=== PATIENT | male | born 1970 | race Caucasian/White ===

== ENCOUNTER 2024-09-12 06:43 | Outpatient (CLI) | payer BC, SELFPAY ==
--- NOTE | ~2024-09-12 | CT_ITS ---
CLINICAL INDICATION: Left lower quadrant pain with a family history of colon cancer. COMPARISON: None. TECHNIQUE: Multiple contiguous axial images of the abdomen and pelvis were performed following the ad ministration of with 100 mL Omnipaque-350 intravenous contrast The dose-length product (DLP) was 663.52 mGy-cm. Automated exposure control and iterative reconstruction technique were employed. FINDINGS/OBSERVATIONS: Visualized lower thorax: The bilateral lung bases are clear. The heart is of normal size, without pericardial effusion. Small hiatal hernia is present. Liver: The liver demonstrates homogeneous enhancement and is not enlarged . Gallbladder and biliary system: The gallbladder is only minimally distended, and otherwise unremarkable. Pancreas: The pancreas enhances homogeneously without ductal dilatation. Spleen: The spleen enhances homogeneously and is not enlarged no previous a lot of for further. Kidneys: Well-circumscribed focus of fluid attenuation within the interpolar region of the right kidn ey measuring 3.1 x 2.9 x 3.0 cm, likely a simple cyst. The remainder of the bilateral kidneys otherwise enhance symmetrically without hydronephrosis or keegan l calculi. Adrenal glands: Unremarkable. Gastrointestinal tract: Fecal stasis within the colon. Appendix: The air-filled appendix is of normal caliber (axial series, images 112 through 133) Vasculature: Prominence of the left gonadal vein, for which clinical correlation regarding the presen ce of a varicocele is needed. Remainder of the vasculature is otherwise unremarkable. Lymph nodes: No pathologically enlarged or morphologically suspicious lymph nodes within the retroperitoneum or at the root of the mesentery. Pelvic structures: The bladder is only minimally distended, and otherwise unremarkable. The prostate gland is not enlarged. Body wall and musculoskeletal: Small fat-containing umbilical hernia. No significant degenerative disease within the lower thoracic or lumbosacral spine. IMPRESSION: Likely simple cyst within the interpolar region of the right kidney for which renal ultrasound may be performed for confirmation. Prominence of the left gonadal vein for which clinical correlation regarding the presence of a varic ocele is needed. Otherwise, no acute or subacute pathology detected within the abdomen or pelvis, as detailed above. Reviewed, dictated and finalized at location A. IMPRESSION: Likely simple cyst within the interpolar region of the right kidney for which r enal ultrasound may be performed for confirmation. Prominence of the left gonadal vein for which clinical correlation regarding t he presence of a varicocele is needed. Otherwise, no acute or subacute pathology detected within the abdomen or pelvis , as detailed above.
--- OUTSIDE RECORDS SUMMARY | 2024-09-12 06:46 | XMS_ITS | Clinical Summary ---
Author Organization [facility] Address [address] [place] [address] Care Team Providers Care Pharmacy Delivery Driver Name Role Phone Ariel Ortiz MD Primary Care Provider [phone] Source Comments [facility],non-owned Affiliates and Associated Physician Practices is amultiple site organization consisting of ambulatory clinics and hospital sitesin [place], [place], [place] and [place]. This disclosure is being madepursuant to the Care Everywhere program and may not contain all information available regarding this patient. 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 Gender Identity Not on file Sexual Orientation Not on file Plan of Treatment Health Maintenance Due Date Last Done Comments COLOGUARD (AGES 45-75) - COL ON CA SCREENING 1972 COLON MONITORING 1972 COLONOSCOPY - COLON CA SCREENING 1972 CT COLONOGRAPHY - COLON CA SCREENING 1972 Colorectal Cancer Screening 1972 FIT - COLON CA SCREENING 1972 FLEX SIG - COLON CA SCREENING 1972 LIPID TESTING 1972 HIV SCREENING 1987 HEPATITIS C SCREENING 03/09/1990 DTAP/TDAP/TD VACCINES (1 - Tdap) 1991 HEPATITIS B VACCINE (1 of 3 - 19+ 3-dose series) 1991 PNEUMOCOCCAL VACCINE 50+ (1 of 1 - PCV) 2022 ZOSTER VACCINE (1 of 2) 2022 COVID-19 VACCINE (1 - 2023-2 5 season) 2023 DEPRESSION SCREENING 02/21/2024 INFLUENZA VACCINE (#1) 2024 HIB VACCINE Aged Out No longer eligi ble based on patient's age to complete this topic HPV VACCINE Aged Out No longer eligi ble based on patient's age to complete this topic MENINGOCOCCAL (Group B) VACC INE SHARED DECISION-MAKING Aged Out No longer eligibl e based on patient's age to complete this topic MENINGOCOCCAL GROUPS A/C/Y/W VACCINE Aged Out No longer eligible b ased on patient's age to complete this topic Care Teams Pharmacy Delivery Driver Relationship Specialty Start Date End Date Ariel Ortiz MD [address] [address] PCP - General 03/20/10
--- OUTSIDE RECORDS SUMMARY | 2024-09-12 06:46 | XMS_ITS | Clinical Summary ---
Author Organization [facility] Address [address] [place] [id number] Care Team Providers Care Lean Manufacturing Specialist Name Role Phone Unavailable Primary Care Provider Unavailabl e Social History Tobacco Use Types Packs/Day Years Used Date Smoking Tobacco: Never Assessed Sex and Gender Information Value Date Recorded Sex Assigned at Not on file Legal Sex Male 5:19 PM CDT Gender Identity Not on file Sexual Orientation Not on file Plan of Treatment Health Maintenance Due Date Last Done Comments Colorectal Cancer Screening Colonoscopy (10 Years) 1972 Annual Physical 1975 Hepatitis C 1990 DTaP, Tdap and Td Vaccines ( 1 - Tdap) 1991 Hepatitis B Vaccines (1 of 3 - 19+ 3-dose series) 1991 Pneumococcal Vaccine: 50+ Ye ars (1 of 1 - PCV) 2022 Zoster Vaccines (1 of 2) 2022 COVID-19 Vaccine (1 - 2023-2 5 season) 2023 Meningococcal B Vaccine Aged Out No l onger eligible based on patient's age to complete this topic Meningococcal Vaccine Aged Out No yasmine julia eligible based on patient's age to complete this topic RSV Immunizations Under 20 Months Aged Out No longer eligible based on patient's age to complete this topic
--- OUTSIDE RECORDS SUMMARY | 2024-09-12 06:46 | XMS_ITS | Clinical Summary ---
Author Organization [facility] Address [address] [place] [address] Phone Care Team Providers Care Machine Sand Mixer Name Role Phone Joaquin Nice MD Primary Care Provider [phone] Allergies No known active allergies Medications ketoconazole (NIZORAL) 2 % Cream Apply to affected area daily. Active terbinafine HCL (LamISIL) 250 mg tablet Take 1 Tablet (250 mg) by mouth daily for 14 days. 14 Tablet 08/30/2021 12:16 PM CDT 08/27/2021 Active mupirocin (BACTROBAN) 2 % Ointment Apply a thin layer 2-3 times daily to red area on nose 22 Gram 1 02/08/2023 1:17 PM SALES SUPPORT MANAGER 02/07/2023 Active rosuvastatin (CRESTOR) 10 mg tablet Take 1 Tablet (10 mg) by mouth daily. 90 Tablet 1 05/23/2024 6:47 PM CDT 05/23/2024 Active tamsulosin (FLOMAX) 0.4 mg capsule Take 1 Capsule (0.4 mg) by mouth daily. 30 Capsule 1 05/23/2024 6:47 PM CDT 05/23/2024 Active Active Problems No known active problems Encounters Date Type Department Care Team Description 07/10/2024 External Device Data [facility] ABSTRACTION Provider, Abstract 07/09/2024 External Device Data [facility] ABSTRACTION Provider, Abstract 06/25/2024 External Device Data [facility] ABSTRACTION Provider, Abstract from Last 3 Months Family History Medical History Relation Name Comments Colon Cancer Maternal Grandfather Colon Cancer Paternal Grandmother Relation Name Status Comments Maternal Grandfather Paternal Grandmother Social History Tobacco Use Types Packs/Day Years Used Date Smoking Tobacco: Never Smokeless Tobacco: Never Alcohol Use Standard Drinks/Week Comments Yes 7 (1 standard drink = 0.6 oz pur e alcohol) Sex and Gender Information Value Date Recorded Sex Assigned at Not on file Legal Sex Male 9:46 AM SALES SUPPORT MANAGER Gender Identity Not on file Sexual Orientation Not on file Last Filed Vital Signs Vital Sign Reading Time Taken Comments Blood Pressure 104/75 01/07/2020 9:45 AM SALES SUPPORT MANAGER Pulse 57 01/07/2020 9:45 AM SALES SUPPORT MANAGER Temperature 35.8 C (96.5 F) 01/07/2020 9:25 AM SALES SUPPORT MANAGER Respiratory Rate 16 01/07/2020 9:45 AM SALES SUPPORT MANAGER Oxygen Saturation 97% 01/07/2020 9:45 AM SALES SUPPORT MANAGER Inhaled Oxygen Concentration - - Weight 97.4 kg (214 lb 12.8 oz) 01/07/2020 8:10 AM SALES SUPPORT MANAGER Height 188 cm (6' 2) 01/07/2020 8:10 AM SALES SUPPORT MANAGER Body Mass Index 27.58 01/07/2020 8:10 AM SALES SUPPORT MANAGER Plan of Treatment Upcoming Encounters Date Type Department Care Team (Latest Contact Info) Description 01/09/2025 8:00 AM SALES SUPPORT MANAGER Hospital Encounter [facility] [address] [place] [address] Simeon Toledo MD [address] [place] [phone] Hx of colonic polyps 01/09/2025 8:00 AM SALES SUPPORT MANAGER - 01/09/2025 8:30 AM SALES SUPPORT MANAGER Surgery [facility] [address] [place] [address] Simeon Toledo MD [address] [place] [phone] COLONOSCOPY Scheduled Procedures Name Priority Associated Diagnoses Date/Ti me COLONOSCOPY Hx of colonic polyps 01/09/2025 8:00 AM SALES SUPPORT MANAGER Health Maintenance Due Date Last Done Comments DTAP/TDAP/TD VACCINES (1 - Tdap) 1991 HEPATITIS B VACCINES (1 of 3 - 19+ 3-dose series) 1991 FIT-DNA Q 3 years 2017 FIT/FOBT Q 1 year 2017 Flex Sig/CT Colonography Q 5 years 2017 ZOSTER VACCINE (1 of 2) 2022 INFLUENZA VACCINE (#1) 2024 COLORECTAL SCREENING 01/06/2030 01/07/2020, 01/07/20 20 Colorectal Cancer Screening 01/06/2030 Procedures Procedure Name Priority Date/Time Associated Diagnosis Comments COLONOSCOPY REPORT 01/07/2020 9: 25 AM SALES SUPPORT MANAGER from Last 3 Months or Most Recently Relevant to Health Maintenance Results * COLONOSCOPY REPORT (01/07/2020 9:25 AM SALES SUPPORT MANAGER) Narrative Procedure Note Simeon Toledo MD - 01/07/2020 9:24 AM CST [facility] Endoscopy Patient Name: Werner Grewal Procedure Date: 01/07/2020 Date of : 1970 Admit Type: Outpatient Age: 49 Attending MD: Simeon Toledo MD Procedure: Colonoscopy Indications: Rectal bleeding, Family history of colon cancer in multiple second-degree relatives Providers: Simeon Toledo MD Referring MD: Joaquin Nice MD Medicines: Propofol per Anesthesia Procedure: Informed consent was obtained for the procedure, including moderate sedation after risks were discussed. Based on the pre-procedure assessment, including review of the patient's medical history, medications, allergies, and review of systems, the patient was deemed to be an appropriate candidate for sedation. A timeout was performed. Continuous ECG monitoring, pulse oximetry, blood pressure monitoring, and direct observation were performed. The Colonoscope was introduced through the anus and advanced to the terminal ileum. The colonoscopy was performed without difficulty. The patient tolerated the procedure well. The quality of the bowel preparation was excellent. Estimated Blood Loss: Estimated blood loss: none. Findings: A 5 mm polyp was found in the ascending colon. The polyp was sessile. The polyp was removed with a cold snare. Resection and retrieval were complete. Non-bleeding external hemorrhoids were found during endoscopy. The hemorrhoids were small. A small anal fissure was found in the anal canal. The exam was otherwise without abnormality. Complications: No immediate complications. Impression: - One 5 mm polyp in the ascending colon, removed with a cold snare. Resected and retrieved. - Non-bleeding external hemorrhoids. - Anal fissure. Most likely source of recent hematochezia - The examination was otherwise normal. Recommendation: - Await pathology results. - If the pathology report reveals adenomatous tissue, then repeat the colonoscopy for surveillance in 3 years. - If the pathology report reveals no adenomatous tissue, then repeat the colonoscopy for surveillance in 5 years. Simeon Toledo MD 01/07/2020 9:23:50 AM This report has been signed electronically. Number of Addenda: 0 Procedure Date: 01/07/2020 8:55:17 AM [id number] [address] Simeon Toledo MD GI PROCEDURE ORDERABLES Ladonna l Result from Last 3 Months or Most Recently Relevant to Health [place] [address] [facility] [employer] CHO[employer] (INTERNAL) [facility] [employer] Care Teams Machine Sand Mixer Relationship Specialty Start Date End Date Joaquin Nice MD [address] [place] [address] PCP - General Family Practice 10/30/19
== END 2024-09-12 06:44 | disposition home or self-care (01) ==
PROVIDERS: PCP Family Medicine
DX: R10.32 Left lower quadrant pain (principal)
CPT/HCPCS: 74177; Q9967

== ENCOUNTER 2024-11-14 13:19 | Emergency (ER) | payer BC, SELFPAY ==
--- NOTE | ~2024-11-14 | CT_ITS ---
EXAMINATION: CT abdomen pelvis wo con DATE: 11/14/2024 16:14 INDICATION: Left flank pain and left lower quadrant pain. Hematuria. TECHNIQUE: Computed tomography (CT) of the abdomen and pelvis was performed without intravenous contrast. The dose-length product was 248.83 mGy-cm. Automated exposure control and iterative reconstruction technique were employed. COMPARISON: CT dated 09/12/2024. FINDINGS: Lung bases are unremarkable. Heart size normal. There is a 2-3 mm left UVJ stone with mild left hydronephrosis as well as periureteral and perinephric edema. The liver, spleen, pancreas, adrenal glands are unremarkable. There is a 3.1 cm right renal cyst. Left kidney is otherwise unremarkable. Nonobstructive bowel gas pattern. Bladder is decompressed. No evidence for diverticulitis or appendicitis. No free air or free fluid. No significant vascular abnormality. IMPRESSION: 1. Left UVJ stone measuring 2-3 mm with mild hydronephrosis. Reviewed, dictated and finalized at location O.
[2024-11-14 13:39] VITALS: BP 165/96; PULSE 55; RESP 28; TEMP 36.3; O2SAT 98
[2024-11-14 13:57] VITALS: BP 151/85; PULSE 56; RESP 16; O2SAT 100
--- NOTE | 2024-11-14 14:08 | ED_ITS ---
HPI - General Adult General Chief complaint: Abdominal Pain Stated complaint: abd pain Time Seen by Provider: 11/14/24 13:55 History of Present Illness HPI narrative: 54-year-old male presents to the emergency department for evaluation for acute onset of left flank pain left lower quadrant pain. Patient states approximate 11 30 will he was working in a does get onset of the pain. Patient denies any recent illnesses coughs colds or fevers. Patient denies any significant previous abdominal surgery. Patient is uncomfortable appearing at time of evaluation. Patient complains of left lower quadrant abdominal pain. Patient has no prior history of ureteral calculi Related Data Allergies Allergy/AdvReac Type Severity Reaction Status Date / Time ciprofloxacin Allergy Unknown Unknown Verified 05/23/24 07:16 Review of Systems 2 Review of Systems: All systems reviewed & are unremarkable except as noted in HPI and below PMFSH Past Medical History Medical History (Updated 11/14/24 @ 17:09 by Bobo Garrido MD) Renal cyst BMI 28.0-28.9,adult Anxiety Elevated cholesterol Elevated glucose FHx: colon cancer History of anal fissures Tinea pedis of both feet Bleeding hemorrhoid Family History Family History Other Carcinoma of colon Family history of coronary artery disease Family history of dementia Family history of thyroid disease Malignant neoplasm of prostate Social History Social History Smoking status: Never smoker Alcohol intake: current Substance use: never Substance use type: does not use Do You Feel Safe in your Home?: Yes Lack of Transportation: No Lack of Food: Never True Current Housing: I Have Housing Concerned About Future Housing: No Difficulty Paying Gas/Electric Bills: No Difficulty Paying for Meds: No Currently Unemployed: No Education: Master's Degree or Higher Difficulty w/ Childcare or Family Care: No Living arrangements: with family Occupation/Education: occupation Gender identity (if verbalized by the patient): Male Sexual Orientation (if Verbalized by the Patient): Straight or Heterosexual Exam 2 Narrative: APPEARANCE: Uncomfortable appearing HEAD: normocephalic, atraumatic. EYES: PERRLA/EOMI, conjunctivae clear. NOSE: Normal no drainage EARS:TMS clear with good light reflex. THROAT: Pharynx clear, no exudate. NECK: Supple. No adenopathy, no masses. RESPIRATORY: Airway patent, respirations nonlabored. Clear to auscultation bilaterally, no rales, rhonchi, wheezing. CARDIOVASCULAR: Regular rate and rhythm without murmurs rubs or gallops. ABDOMINAL: Soft, nontender, nondistended, normal bowel sounds MUSCULOSKELETAL: Moves all extremities. Strength/ROM intact, No edema, No calf tenderness. NEURO: Alert. Cranial nerves II through XII intact. Grossly intact SKIN: Warm, dry. Normal Color Course Vital Signs Vital signs: Vital Signs Temperature 97.3 F L 11/14/24 13:39 Pulse Rate 55 L 11/14/24 13:39 Respiratory Rate 28 H 11/14/24 13:39 Blood Pressure 165/96 H 11/14/24 13:39 Pulse Oximetry 98 11/14/24 13:39 Oxygen Delivery Room Air 11/14/24 13:39 Temperature 97.3 F L 11/14/24 13:39 Pulse Rate 49 L 11/14/24 16:15 Respiratory Rate 16 11/14/24 16:15 Blood Pressure 143/82 H 11/14/24 16:15 Pulse Oximetry 100 11/14/24 16:15 Oxygen Delivery Room Air 11/14/24 13:57 Medical Decision Making MDM Narrative Medical decision making narrative: 54-year-old male presents emergency department for evaluation for onset of left lower quadrant abdominal pain. Patient is currently afebrile but does have a leukocytosis of 12.1 hemoglobin 15.2. No acute abnormalities on his CMP. Patient's creatinine is 1.37 which is just mildly worse than his baseline of 1.2. Patient was treated with IV fluids. Patient does have hematuria his UA. CT scan does show 2-3 mm stone left UVJ. Patient had been treated with a mg of IV Dilaudid on re-evaluation patient states he felt significantly improved. Patient and family were updated the results of the workup and plan for discharge and treatment. Patient will be provided medications for pain control nausea control in addition to Flomax and outpatient follow-up with Urology. Differential Diagnosis Differential Diagnosis: Colitis, diverticulitis, ureteral calculi, septic stone, UTI Vital Signs Vital Signs: Vital Signs Temperature 97.3 F L 11/14/24 13:39 Pulse Rate 55 L 11/14/24 13:39 Respiratory Rate 28 H 11/14/24 13:39 Blood Pressure 165/96 H 11/14/24 13:39 Pulse Oximetry 98 11/14/24 13:39 Oxygen Delivery Room Air 11/14/24 13:39 Temperature 97.3 F L 11/14/24 13:39 Pulse Rate 49 L 11/14/24 16:15 Respiratory Rate 16 11/14/24 16:15 Blood Pressure 143/82 H 11/14/24 16:15 Pulse Oximetry 100 11/14/24 16:15 Oxygen Delivery Room Air 11/14/24 13:57 Lab Data Lab results reviewed: Yes I reviewed the patient's lab results. 11/14/24 14:04 11/14/24 14:04 Labs: Lab Results 11/14/24 11/14/24 Range/Units 14:04 15:13 WBC 12.1 H (4.5-10.0) K/mm3 RBC 4.86 (4.6-6.20) M/mm3 Hgb 15.2 (14.0-18.0) g/dL Hct 42.2 (42.0-52.0) % MCV 86.8 (80-100) fl MCH 31.3 (26-34) pg MCHC 36.0 (32-36) g/dl RDW 12.3 (11.5-14.5) % Plt Count 217 (150-375) k/mm3 MPV 9.3 (7.4-10.4) fl Immature Gran % (Auto) 0.4 (0-0.5) % Neut % (Auto) 80.9 H (45.5-73.1) % Lymph % (Auto) 13.8 L (18.3-44.2) % [facility] % (Auto) 4.5 (2.6-8.5) % Eos % (Auto) 0.2 (0-4.4) % Baso % (Auto) 0.2 (0.2-1.2) % Lymph # (Auto) 1.67 (0.9-3.2) K/mm3 [facility] # (Auto) 0.5 (0.1-0.6) K/mm3 Eos # (Auto) 0.0 (0-0.3) K/mm3 Baso # (Auto) 0.0 (0.0-0.1) K/mm3 Abs Immat Gran (auto) 0.05 H (0.00-0.031) K/mm3 Absolute Neuts (auto) 9.8 H (1.3-6.7) K/mm3 Absolute Nucleated RBC 0.000 (0.0-0.012) K/mm3 Nucleated RBC % 0.0 (0.0-0.2) % Sodium 137 (137-145) mmol/L Potassium 4.0 (3.4-5.0) mmol/L Chloride 103 (98-107) mmol/L Carbon Dioxide 25 (22-30) mmol/L Anion Gap 9 (4-12) mmol/L BUN 20 (9-20) mg/dL Creatinine 1.37 H (0.7-1.3) mg/dL Estim Creat Clear Calc 66 ml/min Estimated GFR 55 L (59 - ) Glucose 150 H (65-110) mg/dL Calcium 9.4 (8.4-10.2) mg/dL Total Bilirubin 0.9 (0.2-1.3) mg/dL AST 44 (17-59) U/L ALT 68 H (6-50) U/L Alkaline Phosphatase 70 (38-126) U/L Total Protein 7.8 (6.3-8.2) g/dL Albumin 4.6 (3.5-5.1) g/dL Lipase 140 (23-300) U/L Urine Color Yellow (Yellow) Urine Appearance Clear (Clear) Urine pH 8.0 (5.0-9.0) Ur Specific [place] 1.016 (1.001-1.035) Urine Protein Negative (Negative) mg/dL Urine Glucose (UA) Negative (Negative) mg/dL Urine Ketones 1+ H (Negative) mg/dL Ur Blood (Man) 2+ H (Negative) Urine Nitrate Negative (Negative) Urine Bilirubin Negative (Negative) Urine Urobilinogen 0.2 (<2.0) mg/dL Leukocyte Esterase Rfl Negative (Negative) EULALIO/UL Urine RBC 11-20 H (0-2) /hpf Urine WBC 0-5 (0-3) /hpf Ur Squamous Epith Cells None seen (Few) /hpf Urine Bacteria None seen /hpf Urine Casts 0-2 Imaging Data Radiologist's impression: Impressions Abdomen/Pelvis CT 11/14/24 16:24 IMPRESSION: 1. Left UVJ stone measuring 2-3 mm with mild hydronephrosis. Discharge Plan Discharge Clinical Impression: Calculus, ureteral Patient Disposition: Home Condition: Stable Instructions: Antibiotic Form, Renal Colic (ED), How to Strain Your Urine (ED), Flank Pain (ED) Additional Instructions: Ibuprofen for pain control. Flomax as directed to help you pass the stone. Zofran as needed for nausea control. Herrin as needed for additional pain control. Strain your urine as instructed. If you have any worsening symptoms such as uncontrolled pain uncontrolled nausea and vomiting or high fever then please call or return to the emergency department. Have close follow-up with Urology. Patient Language: Icelandic Prescriptions: New hydrocodone-acetaminophen 5-325 mg tablet 1 tablet PO Q12H PRN (Reason: pain) Qty: 14 0RF tamsulosin [Flomax] 0.4 mg capsule 0.4 mg PO DAILY 14 Days Qty: 14 0RF ondansetron 4 mg tablet,disintegrating 4 mg PO Q8H PRN (Reason: nausea and vomiting) Qty: 14 0RF No Action tamsulosin [Flomax] 0.4 mg capsule 0.4 mg PO DAILY Qty: 30 1RF rosuvastatin 10 mg tablet 10 mg PO DAILY Qty: 90 1RF Follow-up/Referrals: Theodore Nagel MD [Physician, Urology] Joaquin Nice MD [Primary Care Provider, Family Practice]
[2024-11-14 14:11] LABS: Hematocrit 42.2 % (42.0-52.0); Hemoglobin 15.2 g/dL (14.0-18.0); Immature Granulocyte Percent A 0.4 % (0-0.5); Lymphocytes Absolute Auto 1.67 K/mm3 (0.9-3.2); Mean Corpuscular HGB Conc 36.0 g/dl (32-36); Mean Corpuscular Hemoglobin 31.3 pg (26-34); Mean Corpuscular Volume 86.8 fl (80-100); Nucleated Red Blood Cells Absolute Auto 0.000 K/mm3 (0.0-0.012); Nucleated Red Blood Cells Perc 0.0 % (0.0-0.2); Platelet Count Result 217 k/mm3 (150-375); Red Blood Count 4.86 M/mm3 (4.6-6.20); White Blood Count 12.1 K/mm3 (4.5-10.0)
[2024-11-14] MEDS: HYDROmorphone HCL INJ (*CRX) 1 MG/ML SYR IV PUSH (14:11)
[2024-11-14] MEDS: LACTATED RINGERS 1,000 ML 500 ML IV CONT (14:20)
[2024-11-14 14:23] LABS: Alanine Aminotransferase 68 U/L (6-50); Albumin Level 4.6 g/dL (3.5-5.1); Alkaline Phosphatase 70 U/L (38-126); Anion Gap 9 mmol/L (4-12); Aspartate Amino Transferase 44 U/L (17-59); Bilirubin,Total 0.9 mg/dL (0.2-1.3); Blood Urea Nitrogen 20 mg/dL (9-20); Calcium 9.4 mg/dL (8.4-10.2); Carbon Dioxide 25 mmol/L (22-30); Chloride 103 mmol/L (98-107); Estimated CRCL calculation 66 ml/min; Estimated Glomerular Filt Rate 55; Glucose 150 mg/dL (65-110); Lipase 140 U/L (23-300); Potassium 4.0 mmol/L (3.4-5.0); Sodium 137 mmol/L (137-145); Total Protein 7.8 g/dL (6.3-8.2)
[2024-11-14 15:08] VITALS: BP 132/81; PULSE 44; RESP 11; O2SAT 100
[2024-11-14 15:43] LABS: Add Urine Microscopic? YES; Appearance Urine Clear (Clear); Glucose Urine UA Negative (Negative); Leukocyte Esterase Ur Negative LEU/UL (Negative); Nitrate Urine Negative (Negative); Non Pathogenic Casts 0-2; Specific Grav Ur 1.016 (1.001-1.035)
--- OUTSIDE RECORDS SUMMARY | 2024-11-14 16:09 | XMS_ITS | Clinical Summary ---
Author Organization [facility] Address [address] [place] [id number] Care Team Providers Care Director Of Health Care Marketing Name Role Phone Unavailable Primary Care Provider [...] COVID-19 Vaccine (1 - 2023-2 5 season) 2024 Meningococcal B Vaccine Aged Out No l onger eligible based on patient's age to complete this topic Meningococcal Vaccine Aged Out No yasmine julia eligible based on patient's age to complete this topic RSV Immunizations Under 20 Months Aged Out No longer eligible based on patient's age to complete this topic
--- OUTSIDE RECORDS SUMMARY | 2024-11-14 16:09 | XMS_ITS | Clinical Summary ---
Author Organization [facility] Address [address] [place] [address] Phone Care Team Providers Care Php Lamp Developer Name Role Phone Joaquin Nice MD Primary Care Provider Allergies No known active allergies Medications ketoconazole [...] nose 22 Gram 1 02/08/2023 1:17 PM CITY CARRIER 02/07/2023 Active rosuvastatin (CRESTOR) 10 mg tablet Take 1 Tablet (10 mg) by mouth daily. 90 Tablet 1 09/14/2024 2:12 PM CDT 05/23/2024 Active tamsulosin (FLOMAX) 0.4 mg capsule Take 1 Capsule (0.4 mg) by mouth daily. 30 Capsule 1 05/23/2024 6:47 PM CDT 05/23/2024 Active Active Problems No known active problems Encounters Date Type Department Care Team Description 11/06/2024 External Device Data STL ABSTRACTION Provider, Abstract 10/08/2024 External Device Data [facility] ABSTRACTION Provider, Abstract [...] on file Legal Sex Male 9:46 AM CITY CARRIER Gender Identity Not on file Sexual Orientation Not on file Last Filed Vital Signs Vital Sign Reading Time Taken Comments Blood Pressure 104/75 01/07/2020 9:45 AM CITY CARRIER Pulse 57 01/07/2020 9:45 AM CITY CARRIER Temperature 35.8 C (96.5 F) 01/07/2020 9:25 AM CITY CARRIER Respiratory Rate 16 01/07/2020 9:45 AM CITY CARRIER Oxygen Saturation 97% 01/07/2020 9:45 AM CITY CARRIER Inhaled Oxygen Concentration - - Weight 97.4 kg (214 lb 12.8 oz) 01/07/2020 8:10 AM CITY CARRIER Height 188 cm (6' 2) 01/07/2020 8:10 AM CITY CARRIER Body Mass Index 27.58 01/07/2020 8:10 AM CITY CARRIER Plan of Treatment Upcoming Encounters Date Type Department Care Team (Latest Contact Info) Description 01/09/2025 8:00 AM CITY CARRIER Hospital Encounter [facility] [address] [place] [address] Simeon Toledo MD [address] [place] [phone] Hx of colonic polyps 01/09/2025 8:00 AM CITY CARRIER - 01/09/2025 8:30 AM CITY CARRIER Surgery [facility] [address] [place] [address] Simeon Toledo MD [address] [facility] [facility] [address] [place] [phone] COLONOSCOPY Scheduled Procedures Name Priority Associated Diagnoses Date/Ti me COLONOSCOPY Hx of colonic polyps 01/09/2025 8:00 AM CITY CARRIER Health Maintenance Due Date Last Done Comments [...] Comments COLONOSCOPY REPORT 01/07/2020 9: 25 AM CITY CARRIER from Last 3 Months or Most Recently Relevant to Health Maintenance Results * COLONOSCOPY REPORT (01/07/2020 9:25 AM CITY CARRIER) Narrative Procedure Note Simeon Toledo MD - 01/07/2020 9:24 AM CST [facility] Endoscopy Patient Name: Werner Grewal Procedure Date: [...] Addenda: 0 Procedure Date: 01/07/2020 8:55:[id number] [address] Simeon Toledo MD GI PROCEDURE ORDERABLES Ladonna l Result from Last 3 Months or Most Recently Relevant to Health Maintenance Insurance [facility] [employer] CHO[employer] (INTERNAL) [facility] RX [facility] [employer] Care Teams Php Lamp Developer Relationship Specialty Start Date End Date Joqauin Nice MD [place] [address] PCP - General Family Practice 10/30/19
--- OUTSIDE RECORDS SUMMARY | 2024-11-14 16:09 | XMS_ITS | Clinical Summary ---
Author Organization [facility] Address [address] [place] [address] Care Team Providers Care Mounter Automatic Name Role Phone Ariel Ortiz MD Primary Care Provider [phone] Source Comments [facility],non-owned Affiliates and Associated Physician Practices is amultiple site organization consisting of ambulatory clinics and hospital sitesin [place], [place], [place] and [place]. This disclosure is being madepursuant to the Care Everywhere program and may not contain all information available regarding this patient. 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
[2024-11-14 16:15] VITALS: BP 143/82; PULSE 49; RESP 16; O2SAT 100
--- OUTSIDE RECORDS SUMMARY | 2024-11-14 16:49 | XMS_ITS | Clinical Summary ---
Author Organization [facility] Address [address] [place] [address] Phone Care Team Providers Care Profiler Hand Name Role Phone Joaquin Nice MD Primary Care Provider [phone] Allergies No known active allergies Medications ketoconazole [...] nose 22 Gram 1 02/08/2023 1:17 PM PIPELINES SUPERINTENDENT 02/07/2023 Active rosuvastatin (CRESTOR) 10 mg tablet [...] on file Legal Sex Male 9:46 AM PIPELINES SUPERINTENDENT Gender Identity Not on file Sexual Orientation Not on file Last Filed Vital Signs Vital Sign Reading Time Taken Comments Blood Pressure 104/75 01/07/2020 9:45 AM PIPELINES SUPERINTENDENT Pulse 57 01/07/2020 9:45 AM PIPELINES SUPERINTENDENT Temperature 35.8 C (96.5 F) 01/07/2020 9:25 AM PIPELINES SUPERINTENDENT Respiratory Rate 16 01/07/2020 9:45 AM PIPELINES SUPERINTENDENT Oxygen Saturation 97% 01/07/2020 9:45 AM PIPELINES SUPERINTENDENT Inhaled Oxygen Concentration - - Weight 97.4 kg (214 lb 12.8 oz) 01/07/2020 8:10 AM PIPELINES SUPERINTENDENT Height 188 cm (6' 2) 01/07/2020 8:10 AM PIPELINES SUPERINTENDENT Body Mass Index 27.58 01/07/2020 8:10 AM PIPELINES SUPERINTENDENT Plan of Treatment Upcoming Encounters Date Type Department Care Team (Latest Contact Info) Description 01/09/2025 8:00 AM PIPELINES SUPERINTENDENT Hospital Encounter [facility] [address] [place] [address] Simeon Toledo MD [address] [place] [phone] Hx of colonic polyps 01/09/2025 8:00 AM PIPELINES SUPERINTENDENT - 01/09/2025 8:30 AM PIPELINES SUPERINTENDENT Surgery [facility] [address] [place] [address] Simeon Toledo MD [address] [facility] [address] [place] [phone] COLONOSCOPY Scheduled Procedures Name Priority Associated Diagnoses Date/Ti me COLONOSCOPY Hx of colonic polyps 01/09/2025 8:00 AM PIPELINES SUPERINTENDENT Health Maintenance Due Date Last Done Comments [...] Comments COLONOSCOPY REPORT 01/07/2020 9: 25 AM PIPELINES SUPERINTENDENT from Last 3 Months or Most Recently Relevant to Health Maintenance Results * COLONOSCOPY REPORT (01/07/2020 9:25 AM PIPELINES SUPERINTENDENT) Narrative Procedure Note Simeon Toledo MD - 01/07/2020 9:24 AM CST [facility] Endoscopy Patient Name: Werner Grewal [...] Addenda: 0 Procedure Date: 01/07/2020 8:55:[id number] [address] Simeon Toledo MD GI PROCEDURE ORDERABLES Ladonna l Result from Last 3 Months or Most Recently Relevant to Health Maintenance Insurance [facility] [employer] CHOICE RX [employer] (INTERNAL) [facility] RX [facility] [employer] Care Teams Profiler Hand Relationship Specialty Start Date End Date Joaquin Nice MD [place] [address] [place] [address] PCP - General Family Practice 10/30/19
--- OUTSIDE RECORDS SUMMARY | 2024-11-14 16:49 | XMS_ITS | Clinical Summary ---
Author Organization [facility] Address [address] [place] [address] Care Team Providers Care Supervisor Airplane Flight Attendant Name Role Phone Unavailable Primary Care Provider [...]
--- OUTSIDE RECORDS SUMMARY | 2024-11-14 16:49 | XMS_ITS | Clinical Summary ---
Author Organization [facility] Address [address] [place] [address] Care Team Providers Care Endodontist Name Role Phone Ariel Ortiz MD Primary Care Provider [phone] Source Comments [facility],non-owned Affiliates and Associated Physician Practices is amultiple site organization consisting of ambulatory clinics and hospital sitesin [place], [place], [place] and [place]. This disclosure is being madepursuant to the Care Everywhere program and may not contain all information available regarding this patient. 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
[2024-11-14] MEDS: TAMSULOSIN HCL 0.4 MG CAPSULE PO (17:16)
[2024-11-14] MEDS: HYDROcodone/acetaminophen (*CRX) 5-325 MG TABLET 1 TAB PO (17:16)
== END 2024-11-14 17:19 | disposition home or self-care (01) ==
PROVIDERS: Emergency Provider Emergency Medicine; PCP Family Medicine
DX: N13.2 Hydronephrosis with renal and ureteral calculous obstruction (principal); D72.829 Elevated white blood cell count, unspecified
CPT/HCPCS: 36415; 74176; 80053; 81001; 83690; 85025; 96361; 96374; 99284; A9270; J1171; J7120